=== PATIENT | male | born 1995 | race Caucasian/White ===

== ENCOUNTER 2019-10-30 12:00 | Emergency (ER) | payer OTHER, SELFPAY ==
--- NOTE | 2019-10-30 12:21 | DI.RAD.S_ITS ---
PROCEDURE: XR ANKLE LT MIN 3V INDICATIONS: pain, swelling, ecchymosis TECHNIQUE: 3 views of the ankle were acquired. COMPARISON: None. FINDINGS: Bones: No fractures or dislocations. Ankle mortise is normally aligned. No suspicious bony lesions. Soft tissues: No tibiotalar joint effusion. Achilles tendon appears normal. Lateral soft tissue swelling is noted and ligamentous injury cannot be excluded. IMPRESSION: No fracture. No osseous lesion. If symptoms and/or clinical suspicion for pathology persists, further assessment with repeat radiographs (7-10 days) or advanced imaging (e.g. CT, MRI or bone scan) may be helpful. Dictated by: Marivel Figueroa MD, PhD on 10/30/2019 at 12:40 Approved by: Marivel Figueroa MD, PhD on 10/30/2019 at 12:43
[2019-10-30 12:34] VITALS: BP 133/87; PULSE 100; RESP 13; TEMP 36.4; O2SAT 97
--- NOTE | 2019-10-30 13:35 | PC.NURSE ---
walking boots/ per order.
--- NOTE | 2019-10-30 19:52 | ED_ITS ---
HPI - Extremity Injury (Lower) General Chief Complaint: Extremity Injury, Lower Stated Complaint: rolled ankle left playing basketball yesturday Time Seen by Provider: 10/30/19 12:05 Source: patient Mode of arrival: Wheelchair Limitations: no limitations History of Present Illness HPI Narrative: 24-year-old male smoker and occasional drinker without chronic medical problems presents with his significant other in the chief complaint of left ankle injury suffered while playing basketball. He states that he rolled his ankle while playing and felt a pop which has resulted in pain and swelling. His discomfort is worse with ambulation or range of motion and improves with rest. He denies any hip or knee pain. He denies numbness, tingling or weakness. He denies any history of prior ankle injury. MD complaint: ankle injury Onset (ago): day(s) Type of Injury: inversion Place: other Severity: moderate Relieving factors: immobilization Exacerbating factors: weight bearing, movement and palpation Context: running Associated symptoms: snap/pop sensation, swelling and able to partially bear weight Other symptoms: none Review of Systems Constitutional Constitutional: Denies chills, Denies fatigue, Denies fever(s), Denies frequent falls, Denies lethargy and Denies weakness Eyes Eyes: Denies change in vision, Denies eye discharge, Denies irritation and Denies loss of vision ENT Ears, Nose, Mouth, and Throat: Denies change in voice, Denies dizziness, Denies neck pain, Denies sore throat and Denies throat swelling Cardiovascular Cardiovascular: Denies chest pain, Denies irregular heart rhythm, Denies lightheadedness, Denies palpitations, Denies dyspnea, Denies dyspnea on exertion and Denies orthopnea Respiratory Respiratory: Denies cough, Denies dyspnea, Denies dyspnea on exertion and Denies wheezing Gastrointestinal Gastrointestinal: Denies abdominal pain, Denies change in bowel habits, Denies diarrhea, Denies nausea and Denies vomiting Genitourinary Genitourinary: Denies hematuria, Denies flank pain, Denies urinary incontinence and Denies urinary urgency Musculoskeletal Musculoskeletal: Denies back pain, Reports joint swelling, Reports limited range of motion, Denies muscle weakness, Denies neck pain, Denies numbness and Denies tingling Integumentary/Breasts Skin/Breast: Denies pruritus, Denies erythema, Denies rash and Denies wounds Neurologic Neurologic: Denies behavioral changes, Denies confusion, Denies dizziness, Denies frequent falls, Denies loss of vision, Denies numbness, Denies tingling and Denies weakness Psychiatric Psychiatric: Denies anxiety, Denies behavioral changes, Denies confusion, Denies depression, Denies homicidal ideation and Denies suicidal ideation Endocrine Endocrine: Denies fatigue, Denies flushing and Denies palpitations Hematologic/Lymphatic Hematologic/Lymphatic: Denies easy bruising Allergic/Immunologic Allergic/Immunologic: Denies urticaria, Denies throat swelling and Denies wheezing Patient History Social History Smoking Status: Never smoker Smoking Status: Never smoker Substance Use Type: does not use Exam Narrative Exam Narrative: GEN: AOx3 and in mild distress EYES: Pupils are equal, round, and reactive to light and accommodation. Extraoccular muscles are intact bilaterally. There is no subconjunctival hemorrhage or exudate. CHEST: Lungs are clear to auscultation bilaterally and free of wheezes, rales, or rhonchi. Heart rate is regular rhythm, there are no murmurs, clicks, rubs, or gallops. There is no chest wall tenderness. ABD: Abdomen is soft and nontender. There is no guarding or rebound. Bowel sounds are normal in all 4 quadrants. There is no mass or organomegaly. EXT: Decreased range of motion secondary to pain of left ankle with ecchymosis distal to her lateral malleolus. There is some tenderness to palpation of lateral malleolus. No ligamentous instability. No pain to palpation over anterior talus. No pain with squeeze test. No step-off in Achilles. SKIN: Warm, pink, and dry. No erythema or rash Initial Vital Signs Initial Vital Signs: Vital Signs Temperature 97.5 F L 10/30/19 12:34 Pulse Rate 100 H 10/30/19 12:34 Respiratory Rate 13 10/30/19 12:34 Blood Pressure 133/87 10/30/19 12:34 Pulse Oximetry 97 10/30/19 12:34 Procedures Orthopedic Splinting/Casting Injury #1: Side: left Lower Extremity Injury Location: ankle Other Orthopedic Equipment: crutches Post splinting neuro exam: intact Post splinting vascular exam: intact Placed by: Nursing Course Orders Ordered: ED Orders 10/30/19 12:21 XR ankle LT min 3V Stat Vital Signs Vital signs: Vital Signs - 8 hr 10/30/19 12:34 Temperature 97.5 F L Pulse Rate 100 H Respiratory Rate 13 Blood Pressure 133/87 Pulse Oximetry 97 MDM - Extremity Injury (Lower) Imaging Data Extremity x-ray #1: Radiologist's Impression: [address] [address] XRay Report Signed Patient: Jonathan VallesMR#: [id number] : 1995Acct:[id number] Age/Sex: 24 / MDate of Service: 10/30/19 Loc: ED Accession Number: [id number] Procedure: XR ankle LT min 3V Ordering Provider: Vinicius Gresham D.O. PROCEDURE: XR ANKLE LT MIN 3V INDICATIONS: pain, swelling, ecchymosis TECHNIQUE: 3 views of the ankle were acquired. COMPARISON: None. FINDINGS: Bones: No fractures or dislocations. Ankle mortise is normally aligned. No suspicious bony lesions. Soft tissues: No tibiotalar joint effusion. Achilles tendon appears normal. Lateral soft tissue swelling is noted and ligamentous injury cannot be excluded. IMPRESSION: No fracture. No osseous lesion. If symptoms and/or clinical suspi cion for pathology persists, further assessment with repeat radiographs (7-10 days) or advanced imaging (e.g. CT, MRI or bone scan) may be helpful. Dictated by: Marivel Figueroa MD, PhD on 10/30/2019 at 12:40 Approved by: Marivel Figueroa MD, PhD on 10/30/2019 at 12:43 Discharge Plan Departure Patient Disposition: Home Clinical Impression: Ankle sprain and strain Discharge Date/Time: 10/30/19 13:37 Instructions: Ankle Sprain Activity Restrictions/Additional Instructions: *You have been diagnosed with [left ankle injury, no fracture suspected] *What to do: *Take medications as directed: Tylenol or Motrin for pain *Follow up with your primary care provider in 2-3 days, call for an appointment. Let them know you were seen in the Emergency Department and that we ask that you be seen in follow up *Return to ER if you should have any new, worsening or concerning symptoms Referrals: Matty Henderson MD [Physician] -
== END 2019-10-30 13:37 | disposition home or self-care (01) ==
PROVIDERS: Emergency Provider Emergency Medicine
DX: S93.402A Sprain of unspecified ligament of left ankle, initial encounter (principal); S96.912A Strain of unspecified muscle and tendon at ankle and foot level, left foot, initial encounter; Y93.67 Activity, basketball
CPT/HCPCS: 73610; 99283